=== PATIENT | male | born 1960 | race African-American/Black ===

== ENCOUNTER 2024-07-06 23:01 | Emergency (ER) | payer MEDICAID ==
[~2024-07-06] VITALS: Ht 175.3 cm; Wt 45.4 kg
[2024-07-06] MEDS: ACETAMINOPHEN 1000 MG/100 ML IV STA (23:46)
[2024-07-06] MEDS: ACETAMINOPHEN 325 MG TAB PO STA (23:48)
[2024-07-06] MEDS ORDERED: SODIUM CHLORIDE 0.9% 1000ML 1,000 ML ONE (23:49)
[2024-07-06] MEDS: SODIUM CHLORIDE 0.9% 1000ML 1,000 ML IV STA (23:56)
[2024-07-07 00:04] LABS: BASOPHILS % 0.2 % (0.0-1.0); EOSINOPHILS % 0.1 % (0.0-6.0); LYMPHOCYTES # (AUTO) 0.8 (1.0-3.2); LYMPHOCYTES % 6.9 % (18.0-39.1); MEAN CORPUSCULAR HEMOGLOBIN 23.1 pg (28-32); MEAN CORPUSCULAR HGB CONC 29.9 g/dL (31-35); MEAN CORPUSCULAR VOLUME 77.3 fL (81-99); MONOCYTES # (AUTO) 0.3 (0.2-0.8); MONOCYTES % 2.4 % (4.4-11.3); NEUTROPHILS # (AUTO) 10.2 (2.1-6.9); NEUTROPHILS % 89.3 % (38.7-80.0); PLATELET COUNT 515 x10e3/uL (140-360); RED BLOOD COUNT 2.99 x10e6/uL (4.3-5.7); RED CELL DISTRIBUTION WIDTH 18.6 % (11.7-14.4); WHITE BLOOD COUNT 11.44 x10e3/uL (4.8-10.8)
[2024-07-07 00:16] LABS: HEMATOCRIT 23.1 % (38.2-49.6); HEMOGLOBIN 6.9 g/dL (14.0-18.0)
[2024-07-07 00:19] LABS: ALBUMIN 2.1 g/dL (3.5-5.0); ALBUMIN/GLOBULIN RATIO 0.3 (0.8-2.0); ANION GAP 15.1 mmol/L (8-16); BILIRUBIN,TOTAL 0.3 mg/dL (0.2-1.2); CALCIUM 8.4 mg/dL (8.4-10.2); CREATININE, SERUM 0.71 mg/dL (0.72-1.25); POTASSIUM 4.1 mmol/L (3.5-5.1); TOTAL PROTEIN 9.1 g/dL (6.5-8.1)
[2024-07-07 00:36] LABS: CORONAVIRUS COVID-19 AG NEGATIVE (NEGATIVE); INFLUENZA A AG POSITIVE (NEGATIVE); INFLUENZA B AG NEGATIVE (NEGATIVE)
[2024-07-07 00:58] LABS: TROPONIN I 0.027 ng/mL (0-0.300)
[2024-07-07] MEDS: SODIUM CHLORIDE 0.9% 1000ML 1,000 ML IV ONE (01:20)
[2024-07-07] MEDS ORDERED: DEXTROSE 50% SYRINGE 50 ML IV ONE ×4 (01:23→01:49)
[2024-07-07] MEDS ORDERED: NOREPINEPHRINE 8 MG/D5W 250 ML 250 ML ONE (01:25)
[2024-07-07] MEDS ORDERED: SODIUM CHLORIDE 0.9% 1000ML 2,000 ML ONE (01:44)
[2024-07-07] MEDS: NOREPINEPHRINE 8 MG/D5W 250 ML 250 ML IV SCH (01:47)
[2024-07-07] MEDS ORDERED: DEXTROSE 5%/0.45% SOD CHL 1,000 ML IV ONE (01:49)
[2024-07-07] MEDS ORDERED: ATROPINE SULFATE 0.1 MG/ML 10ML SYR ONE (01:52)
[2024-07-07 01:58] VITALS: TEMP 97.9
[2024-07-07 02:02] VITALS: BP 76/60
[2024-07-07] MEDS ORDERED: EPINEPHRINE HCL SYRINGE ONE (02:09)
[2024-07-07] MEDS ORDERED: EPINEPHRINE HCL 1:1000 1ML 1 MG/ML AMP ONE (02:09)
[2024-07-07] MEDS ORDERED: DEXTROSE 5% 500ML 500 ML IV ONE (02:15)
[2024-07-07] MEDS: EPINEPHRINE HCL 1:1000 1ML 4 MG in DEXTROSE 5% 250ML 250 ML IV SCH (02:15)
[2024-07-07 02:18] VITALS: PULSE 0; O2SAT 0
[2024-07-07 02:31] VITALS: RESP 0
[2024-07-07] MEDS ORDERED: DEXTROSE 50% SYRINGE 50 ML IV STA ×4 (02:40)
[2024-07-07] MEDS: SODIUM CHLORIDE 0.9% 250ML 250 ML IV ONE (02:46)
[2024-07-07 10:58] LABS: BAND NEUTROPHILS % (MANUAL) 13 %; LYMPHOCYTES % (MANUAL) 5 % (19-48); NEUTROPHILS % (MANUAL) 82 % (40-74); NUCLEATED RED BLOOD CELLS 1
[2024-07-07 10:59] LABS: HYPOCHROMASIA MODERATE; PLATELET ESTIMATE SLIGHTLY INCREASED; PLATELET MORPHOLOGY COMMENT NORMAL
== END 2024-07-07 09:15 | disposition expired ==
LOC: ER 23:10
DX: R06.9 Unspecified abnormalities of breathing (principal); R52 Pain, unspecified; J10.1 Influenza due to other identified influenza virus with other respiratory manifestations; D64.9 Anemia, unspecified; I50.9 Heart failure, unspecified; G40.909 Epilepsy, unspecified, not intractable, without status epilepticus; F32.A Depression, unspecified; E22.0 Acromegaly and pituitary gigantism; J84.9 Interstitial pulmonary disease, unspecified; L89.151 Pressure ulcer of sacral region, stage 1; R53.2 Functional quadriplegia; R32 Unspecified urinary incontinence; Z11.52 Encounter for screening for COVID-19; Z85.028 Personal history of other malignant neoplasm of stomach
CPT/HCPCS: 31500; 36415; 36556; 71045; 80053; 82550; 82947; 82948; 83605; 83690; 83880; 84484; 85025; 86850; 86900; 86920; 87040; 87428; 92950; 99285; J0131; J0171 ×2; J0456; J0696; J7030 ×2; J7050; J7060; J7070; J7799; 83518; 93005